=== PATIENT | male | born 1940 | race Caucasian/White ===

== ENCOUNTER 2021-06-24 06:40 | Outpatient (CLI) | payer MEDICARE, OTHER | END 2021-06-24 23:59 | disposition home or self-care (01) | LOC: EDBD 06:40 → LAB 06:40 | PROVIDERS: ATTEND Internal Medicine | DX: Z01.812 Encounter for preprocedural laboratory examination (principal); Z20.822 Contact with and (suspected) exposure to COVID-19 ==

== ENCOUNTER 2021-06-26 07:21 | Day surgery (SDC) | payer MEDICARE, OTHER ==
[2021-06-26] MEDS ORDERED: PROPOFOL 200 MG/20 ML BOTTLE IV ONE (07:22)
[2021-06-26] MEDS ORDERED: LIDOCAINE-MPF 2% 5 ML VIAL IJ ONE (07:22)
[2021-06-26 08:26] LABS: *BILIRUBIN,URIN 1+ (NEGATIVE); *CLARITY,URINE CLEAR (CLEAR); *COLOR,URINE YELLOW (YELLOW); *KETONES,URINE 2+ (NEGATIVE); *UROBILINOGEN,URINE 0.2 E.U./dl (NORMAL); LEUKOCYTE ESTERASE ,URINE 1+ (NEGATIVE); NITRITE, URINE NEGATIVE (NEGATIVE); PH,URINE 5.5 (5.0-8.0); UGLUCOSE NEGATIVE (NEGATIVE)
[2021-06-26 08:27] LABS: *BLOOD, URINE TRACE (NEGATIVE)
[2021-06-26 09:04] LABS: HEMATOCRIT 46.3 % (36.7-47.1); MEAN CORPUSCULAR HEMOGLOBIN 33.1 uug (23.8-33.4); MEAN CORPUSCULAR VOLUME 97.1 fL (73.0-96.2); PLATELET COUNT (AUTO) 238 K/uL (152-348)
[2021-06-26 09:10] LABS: CARBON DIOXIDE 21 mmol/L (21-32); CHLORIDE 103 mmol/L (98-107); CREATININE 1.4 mg/dL (0.6-1.3); GLUCOSE 89 mg/dL (74-106); POTASSIUM 4.7 mmol/L (3.5-5.1); UREA NITROGEN, BLOOD 15 mg/dL (7-18)
[2021-06-26 16:54] LABS: BACTERIA,URINE FEW /HPF (NONE SEEN); SQUAMOUS EPITHELIAL CELL,UR FEW /HPF (NONE SEEN)
== END 2021-06-26 11:35 | disposition home or self-care (01) ==
LOC: DS 07:21 → EDBD 09:00 → DS 11:35
PROVIDERS: ATTEND Surgery
DX: R19.4 Change in bowel habit (principal); A04.8 Other specified bacterial intestinal infections; G89.29 Other chronic pain; R10.9 Unspecified abdominal pain; K57.30 Diverticulosis of large intestine without perforation or abscess without bleeding; K44.9 Diaphragmatic hernia without obstruction or gangrene; K21.00 Gastro-esophageal reflux disease with esophagitis, without bleeding; K62.1 Rectal polyp; K63.89 Other specified diseases of intestine; K31.89 Other diseases of stomach and duodenum; I10 Essential (primary) hypertension; N40.0 Benign prostatic hyperplasia without lower urinary tract symptoms; I25.10 Atherosclerotic heart disease of native coronary artery without angina pectoris; Z79.899 Other long term (current) drug therapy; Z87.891 Personal history of nicotine dependence; Z98.890 Other specified postprocedural states
CPT/HCPCS: 36415; 43239; 45380; 71045; 80048; 81001; 85025; 85730; 87086; J7120; 87077; 88313-TC; 88342; A4217; A4663; J3490